=== PATIENT | male | born 1985 | race Caucasian/White ===

== ENCOUNTER 2025-04-11 08:47 | Outpatient (AMB) | payer OTHER, SELFPAY ==
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
== END 2025-04-11 11:26 | disposition home or self-care (01) ==
LOC: HO.HNS 08:47
PROVIDERS: Visit Provider Physician Assistant
DX: M67.952 Unspecified disorder of synovium and tendon, left thigh (principal); M54.9 Dorsalgia, unspecified
CPT/HCPCS: 99205

== ENCOUNTER → 2025-04-11 08:47 | Outpatient (BNVA) | payer OTHER, SELFPAY | PROVIDERS: Visit Provider Physician Assistant ==

== ENCOUNTER → 2025-04-15 18:17 | Outpatient (BNV) | payer OTHER, SELFPAY | PROVIDERS: Visit Provider Radiology Diagnostic Radiology | DX: M54.50 Low back pain, unspecified (principal); M67.952 Unspecified disorder of synovium and tendon, left thigh | CPT/HCPCS: 72148; 73721 ==

== ENCOUNTER 2025-04-15 18:23 | Outpatient (REF) | payer OTHER, SELFPAY ==
--- NOTE | ~2025-04-15 | MR_ITS ---
CLINICAL HISTORY: M67.952 - Unspecified disorder of synovium and tendon, left thigh --- Additional No lucretia or Special Instructions: severe left gluteal hip pain MR left hip without gadolinium Comparison: None Findings: Nonspecific mild marrow heterogeneity. No acute fracture or pathologic bone lesion. No femoral neck bony protuberances. Normal acetabular version. No effusion. No acetabular labral tears. Musculotendinous structures are intact. IMPRESSION: Unremarkable hip MRI. This document has been electronically signed by: José Miguel Fontenot MD on 04/15/2025 20:28:39
--- NOTE | ~2025-04-15 | MR_ITS ---
CLINICAL HISTORY: M54.9 - Dorsalgia, unspecified --- Additional Notes or Special Instructions: left s ided low back si joint area pain MR lumbar spine without gadolinium Comparison: None Findings: Normal alignment. No acute fracture or pathologic bone lesion. Cauda equina and conus medullaris within normal limits. L4-L5: Mild disc bulge without significant spinal canal stenosis. Mild left neural foraminal stenosis. L5-S1: Minimal disc bulge with annular tear. No significant spinal canal stenosis. Moderate right and mild left neural foraminal stenosis. Fatty atrophy of the anterior paraspinal muscles at L4 and L5. IMPRESSION: No acute findings. Mild degenerative changes in the lower lumbar spine as above. This document has been electronically signed by: José Miguel Fontenot MD on 04/15/2025 20:34:47
== END 2025-04-15 18:24 | disposition home or self-care (01) ==
LOC: HO.MRI 18:23
PROVIDERS: Visit Provider Physician Assistant
DX: M67.952 Unspecified disorder of synovium and tendon, left thigh (principal); M54.9 Dorsalgia, unspecified
CPT/HCPCS: 72148; 73721